=== PATIENT | male | born 2000 | race Caucasian/White ===

== ENCOUNTER 2020-04-18 10:12 | Inpatient (IN) | payer OTHER ==
[~2020-04-18] VITALS: Ht 188 cm; Wt 79.8 kg
[2020-04-18 11:47] LABS: AMPHETAMINES LEVEL URINE NEGATIVE (NEGATIVE); BARBITURATES URINE NEGATIVE (NEGATIVE); BENZODIAZEPINES URINE NEGATIVE (NEGATIVE); CANNABINOIDS URINE NEGATIVE (NEGATIVE); COCAINE METABOLITE URINE NEGATIVE (NEGATIVE); METHADONE URINE NEGATIVE (NEGATIVE); OPIATES URINE NEGATIVE (NEGATIVE); PHENCYCLIDINE URINE NEGATIVE (NEGATIVE)
[2020-04-18 12:01] LABS: HEMATOCRIT 42.4 % (42.0-52.0); MEAN CORPUSCULAR HEMOGLOBIN 28.6 pg (27.0-33.0); MEAN CORPUSCULAR VOLUME 86.7 fl (80.0-96.0); PLATELET COUNT, AUTOMATED 257 10^3/uL (150-450); RED BLOOD COUNT 4.89 10^6/uL (4.30-6.10); WHITE BLOOD COUNT 5.9 10^3/uL (4.0-10.0)
[2020-04-18 12:04] LABS: ACETAMINOPHEN LEVEL < 2.0 UG/ML (10.0-30.0); ALBUMIN 3.8 GM/DL (3.2-5.2); ALT/SGPT 46 U/L (12-78); BILIRUBIN,DIRECT 0.2 MG/DL (0.0-0.2); BILIRUBIN,TOTAL 1.1 MG/DL (0.2-1.0); BLOOD UREA NITROGEN 16 MG/DL (7-18); CALCIUM LEVEL 9.4 MG/DL (8.5-10.1); CARBON DIOXIDE LEVEL 28 MEQ/L (21-32); CHLORIDE LEVEL 104 MEQ/L (98-107); CREATININE FOR GFR 0.87 MG/DL (0.70-1.30); ETHYL ALCOHOL (ETHANOL) < 0.003 % (0.000-0.010); GLUCOSE, FASTING 95 MG/DL (70-100); SALICYLATE LEVEL < 1.7 MG/DL (5.0-30.0); SODIUM LEVEL 137 MEQ/L (136-145); THYROID STIMULATING HORMONE < 0.005 uIU/ML (0.463-3.98); TOTAL PROTEIN 6.9 GM/DL (6.4-8.2)
[2020-04-18 13:48] LABS: RSV AMPLIFICATION NEGATIVE (NEGATIVE)
[2020-04-18] MEDS ORDERED: MOM 30ML SUSPENSION UDC PO PRN (14:00)
[2020-04-18] MEDS ORDERED: ACETAMINOPHEN TAB 650MG DOSE (2X325MG) PO PRN (14:00)
[2020-04-18] MEDS ORDERED: MAALOX 30 ML SUSP *UDC PO PRN (14:00)
[2020-04-18 15:53] VITALS: BP 122/59
[2020-04-19 06:32] VITALS: BP 109/52
[2020-04-19 14:15] LABS: FREE T4 1.82 NG/DL (0.78-1.33); THYROID STIMULATING HORMONE < 0.005 uIU/ML (0.463-3.98)
--- NOTE | 2020-04-19 14:26 | MHHPEPDOC ---
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 He reports that he was "feeling overwhelmed and that I feel like I bit more than I can handle. I was sad about a lot of things and about a lot of thing built up over the years. " Report feeling feeling overwhelmed starting a week or 2 ago with an incident with his in which she had lacerated her arm. PER ED REPORT: Pt was taken to [facility] this morning by his Sgt after she noticed a decline in Pts mood. [facility] assessed Pt and deemed that he could not CFS: Pt voluntarily came to ED for MHE. Pt reports having a lot of "overwhelming feelings." Pt is very guarded and flat with short responses to questions. Pt reports that he doesn't "feel anything," pt reports that even playing with his one year old daughter does not bring him nuno. Pt reports that he has had SI for quite some time but that it has gotten worse after an incident with his that happened roughly two weeks ago. Pt refuses to disclose plan or the incident with his to TW. Pt reports that he had trouble processing the incident and that is when the thoughts of ending his life became worse. Pt reports that he has thought about ending his life a lot but as of now has not acted. Pt reports that if he were to be left alone for any length of time that he would act out on his plan to end his life. Pt reports that he does not have a history of depression but reports a family history of depression and bipolar. Pt denies HI/Self Injury/AH/VH but admits to SI. Pt is unable to CFS. Psychiatric Review of Systems Depression (2 or more weeks): depressed mood, anhedonia, insomnia/hypersomnia (a little of bit), feelings of excess/guilt (hopelessness), difficulty concentrating, appetite changes (varies), psychomotor changes (tired), suicidal thoughts (a few times) Ale (4 or more days of): irritable/elevated mood, decreased need for sleep (at times) Psychosis: denies PTSD: denies Anxiety: situational anxiety, stressor related anxiety Anxiety/ 6 months or more of: restlessness, keyed up, easily fatigued Past Psychiatric History Previous Psychiatric Diagnosis: None Previous Psychiatric Admissions: [facility] is first Suicide Attempts: Suicidal ideations - last thoughts less than a week ago Psychiatric Follow-up: [facility] Psychiatric medications: None Past Medical History Medical Problems No contributory issues No Surgeries Allergic to PCNs Head Injury: No Seizures: No Hospitalizations: No Surgeries: No Family Medical/Psychiatric HX Medical Problems Mother - Bipolar Maternal side - mental illnesses Psychiatric Disorders: Yes Addiction: Yes (Mother - drug addiction Mother's father - ETOH) Suicide Attemps/Completions: Yes (Maternal Uncle committed suicide) Addiction History denies Social History [place] and lived in [place] for one year in High School, lived with Mother. Dad was a soldier, parents when he was younger. Has two younger brothers and 2 younger sisters. Was the emptional Support for his mother Abuse/Trauma: Denies [place] Education: [place] School Graduate Employment: Active [employer] Social Support: and mother Legal: None Marital: , less than one year. 1 year old daughter Mental Status Examination General Appearance: well groomed, appears stated age, hospital scubs/clothing Build: average Demeanor: withdrawn, guarded Eye Contact: avoidant Activity: slowed Behavior: loss of interests, anhedonia, withdrawn Speech: low in volume, impoverished Mood: depressed, anxious Affect: flat Thought Process: logical/linear, depressed Thought Content (Other): none reported Thought Content (Aggressive): none reported Perception (Hallucinations): none reported Perception (Other): none reported Cognition (Impairment of): none reported Cognition(Intelligence Est.): average Oriented: Awake, Alert, Oriented times three Insight: poor Judgment: Poor Psychosis: Denies Diagnoses Major Depressive Disorder, Single Episode, Moderate A-FIB/CHADSVASC A-FIB History Current/History of A-Fib/PAF?: No Current PO Anticoag Therapy: No Assessment 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 He reports other stressors but won't disclose them. He reports feeling suicidal since his had lacerated her arm. States that he had trouble processing the incident and that is when the thoughts of ending his life became worse. He reports poor sleep, depressed/sad mood, anhedonia, feelings of hopelessness, poor concentration and strong suicidal thoughts without a plan. Patient is alert and oriented, guarded and withdrawn, he has poor eye contact, his speech is low, slow and impoverished, He appears quite depressed with flat affect. Will start patient on Zoloft and titrate to therapeutic levels Initial Treatment Plan 1. Patient was admitted on a [9.39] status. 2. Complete history was obtained. 3. With patients permission, family will be contacted and database will be expanded. 4. Patients medication regimen will be reviewed and changed accordingly. 5. Patient will be provided with protected environment. 6. Patient will be treated with individual, group, and milieu therapies. 7. Patient will receive supportive psych-education. 8. Discharge planning will commence immediately. 9. Outpatient follow-up treatment will be strongly recommended. 10. The initial treatment plan will focus initially on: * Depression. * Risk for suicide. ESTIMATED LENGTH OF STAY: 3-5 DAYS. TIME SPENT COUNSELING AND COORDINATING INITIAL CARE: 60 minutes. N/A-No Antipsychotics Vital Signs Vital Signs Date Time Temp Pulse Resp B/P (MAP) Pulse Ox O2 Delivery O2 Flow Rate FiO2 04/19/20 06:32 97.5 71 16 109/52 (71) 100 Room Air Laboratory Data 24H Labs Laboratory Tests 2 04/18/20 12:59: Coronavirus (COVID-19)(PCR) NEGATIVE, Influenza Type A (RT-PCR) NEGATIVE, Influenza Type B (RT-PCR) NEGATIVE, Respiratory Syncytial Virus (PCR) NEGATIVE Medications No Active Prescriptions or Reported Meds Allergies Coded Allergies: Penicillins (Verified Allergy, Unknown, 04/18/20) can't remember CASEY GRIJALVA NP Apr 19, 2020 13:26
[2020-04-19] MEDS ORDERED: SERTRALINE HCL 25 MG TABLET PO ONE (14:30)
--- NOTE | 2020-04-19 14:56 | HPEPDOC ---
[facility] Medical History & Physical Date of Admission Apr 19, 2020 Date of Service: Apr 19, 2020 History and Physical Chief complaint: Who presented to the emergency room with suicidal ideation History of present illness: Patient is a 19-year-old male with no significant past medical history who is presented to [facility] by police after reporting suicidal ideation. Patient has been admitted to the inpatient mental health unit under the care of psychiatry. Hospitalist service was consulted for medical screening evaluation. Patient denies any headache, nausea, vomiting, chest pain, shortness breath, palpitations, abdominal pain, constipation, diarrhea, or urinary discomfort. Patient denies any recent fevers or chills. Patient denies use of any [id number] medications or supplements for weight loss / working out. Patient denies any drug use. Denies any family history of thyroid problems. Denies any skin or hair changes. Patient reports his appetite is fairly normal and denies any changes in his weight. Past Medical History: No significant past medical history Past Surgical History: No significant past surgical history Allergies: See below Medications: See below Family History: - Mother with a history of mental issues - No history of malignancies Social History: - Denies the use of alcohol, tobacco or illicit drugs - Denies recent travel or sick contacts - Lives with and child Review of Systems: 10 point review of systems complete, all negative otherwise stated in HPI Physical exam: - Vitals: BP [122/59], HR [81], RR [17], Sat [100%RA], Temp [97.5F] - General: Sitting up in bed, Speaking in full sentences, AAOx3 - HEENT: NC, AT, PERRLA - CVS: RRR, +S1S2 - Lungs: Fair air entry bilaterally, No appreciable wheezing / rales / rhonchi - Abdomen: Soft, Non-distended, Non-tender - Extremities: No lower extremity edema, No calf tenderness - Neuro: No focal motor or sensory deficit - Skin: No visible rashes Labs: See below Imaging: See below EKG: See below Assessment and Plan: Suicidal ideation - Admitted to the inpatient mental health unit under the care of psychiatry - Currently being managed by psychiatry Suppressed TSH - Currently is asymptomatic; no hyperthyroid symptoms noted - No exophthalmos - Hemodynamically stable; not tachycardic - Will repeat lab work - Will evaluate with TSH / Free T4 / Total T3 / Thyroid stimulating immunoglobulins / Thyroglobulin (quantitative) - Will check thyroid US - Will likely require radioactive iodine uptake scan - unfortunately cannot be completed inpatient; will need to be pursued as an outpatient - Will consider Methimazole after workup is completed; likely as an outpatient - Patient will require outpatient follow up with PCP and Endocrinology within 7 days DVT prophylaxis - Will c/w early ambulation Thank you for this consultation; Hospitalist service will now sign off; please re-consult as needed Vital Signs Vital Signs Date Time Temp Pulse Resp B/P (MAP) Pulse Ox O2 Delivery O2 Flow Rate FiO2 04/19/20 06:32 97.5 71 16 109/52 (71) 100 Room Air Laboratory Data Labs 24H Laboratory Tests 2 04/19/20 13:23: Thyroid Stimulating Hormone (TSH) < 0.005L, Free Thyroxine 1.82H, Total Triiodothyronine 124.0 Home Medications No Active Prescriptions or Reported Meds Allergies Coded Allergies: Penicillins (Verified Allergy, Unknown, 04/18/20) can't remember CHRISTOPH HARRINGTON MD Apr 19, 2020 14:56
--- NOTE | 2020-04-19 15:46 | REP ---
INDICATION: Hyperthyroidism COMPARISON: None. TECHNIQUE: Nicole scale and color evaluation of the thyroid gland using the linear high frequency transducer. FINDINGS: The thyroid gland is normal in overall parenchymal echotexture, vascularity and contour. The isthmus measures 5 mm in width. Right lobe measures 6.1 x 1.9 x 2.1 cm and includes multiple relatively nonspecific benign appearing cysts measuring up to 5 mm. Left lobe measures 5.8 x 1.5 x 1.5 cm and includes multiple scattered relatively nonspecific benign appearing cysts measuring up to 6 mm. IMPRESSION: Multiple bilateral small benign-appearing thyroid cysts. <Electronically signed by Tevin Boudreaux > 04/19/20 [id number]
[2020-04-19 18:46] VITALS: BP 140/64
[2020-04-19] MEDS: busPIRone 5 MG TAB PO SCH (20:38)
[2020-04-19] MEDS: traZODone 50 MG TAB PO PRN (20:39)
[2020-04-20 06:43] VITALS: BP 121/53
[2020-04-20] MEDS: busPIRone 5 MG TAB PO SCH ×2 (09:14→22:16)
[2020-04-20] MEDS: SERTRALINE HCL 50 MG TAB PO SCH (09:14)
--- NOTE | 2020-04-20 15:50 | MHIPNPDOC ---
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 Pt reports that he has thought about ending his life a lot but as of now has not acted. He reports that he was "feeling overwhelmed and that I feel like I bit more than I can handle. I was sad about a lot of things and about a lot of thing built up over the years. " Report feeling overwhelmed starting a week or 2 ago with an incident with his in which she had lacerated her arm. PER ED REPORT: Pt was taken to [facility] this morning by his Sgt after she noticed a decline in Pts mood. [facility] assessed Pt and deemed that he could not CFS: Pt voluntarily came to ED for MHE. Pt r eports having a lot of "overwhelming feelings." Pt is very guarded and flat with short responses to questions. Pt reports that he doesn't "feel anything," pt reports that even playing with his one year old daughter does not bring him nuno. Pt reports that he has had SI for quite some time but that it has gotten worse after an incident with his that happened roughly two weeks ago. Pt refuses to disclose plan or the incident with his to TW. Pt reports that he had trouble processing the incident and that is when the thoughts of ending his life became worse. Pt reports that he has thought about ending his life a lot but as of now has not acted. Pt reports that if he were to be left alone for any length of time that he would act out on his plan to end his life. Pt reports that he does not have a history of depression but reports a family history of depression and bipolar. Pt denies HI/Self Injury/AH/VH but admits to SI. Pt is unable to CFS. VITAL SIGNS: See below. CURRENT MEDICATIONS: See below. 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 , Active Duty, , male, who reports th at he was brought into the ED after he was observed to be depressed and suicidal with no plan General Appearance: well groomed, appears stated age, hospital scubs/clothing Build: average Demeanor: withdrawn, guarded Eye Contact: avoidant Activity: slowed Behavior: loss of interests, anhedonia, withdrawn Speech: low in volume, impoverished Mood: depressed, anxious Affect: flat Thought Process: logical/linear Thought Content (Other): depressed, suicidal thoughts that have lessened Thought Content (Aggressive): none reported Perception (Hallucinations): none reported Perception (Other): none reported Cognition (Impairment of): none reported Cognition(Intelligence Est.): average Oriented: Awake, Alert, Oriented times three Insight: fair Judgment: fair Psychosis: Denies DIAGNOSES: Major Depressive Disorder, Single Episode, Moderate ASSESSMENT: Started Zoloft and Hydroxyzine for anxiety, patient is withdrawn and isolative. States that he feels that he needed this hospitalization, to "reset." States that he feel good knowing that his family is doing ok on the outside. Feels very responsible for everyone. He was the "glue" that kept his family intact growing up as his mother dealt with her addiction problems. He stated that in high school when he was not in school, his friend noted that it wasn't the same without him. Patient appears depressed, but reports that he is feeling "slightly better." MANAGEMENT PLAN: Continue medications as prescribed, will consider TIME SPENT: 25 minutes. Vital Signs Vital Signs Date Time Temp Pulse Resp B/P (MAP) Pulse Ox O2 Delivery O2 Flow Rate FiO2 04/20/20 06:43 98.6 71 18 121/53 (75) 96 Room Air Current Medications Current Medications Medications (Trade) Dose Ordered Sig/Vj Route PRN Reason Start Time Stop Time Status Last Admin Dose Admin Acetaminophen (Tylenol Tab) 650 mg Q6HP PRN PO HEADACHE or DISCOMFORT 04/18/20 14:00 Al Hydrox/Mg Hydrox/Simethicone (Mylanta) 30 ml Q4HP PRN PO HEARTBURN/INDIGESTION 04/18/20 14:00 Buspirone HCl (Buspar) 5 mg BID PO 04/19/20 21:00 04/20/20 09:14 Home Med (Med Rec Complete!) ASDIRECTED XX 04/18/20 12:40 04/18/20 12:40 DC Magnesium Hydroxide (Milk Of Magnesia) 30 ml DAILYPRN PRN PO CONSTIPATION 04/18/20 14:00 Sertraline HCl (Zoloft) 50 mg DAILY PO 04/20/20 09:00 04/20/20 09:14 Trazodone HCl (Desyrel) 50 mg QHSP PRN PO INSOMNIA 04/18/20 14:00 04/19/20 20:39 Allergies Coded Allergies: Penicillins (Verified Allergy, Unknown, 04/18/20) can't remember CASEY GRIJALVA NP Apr 20, 2020 15:50
[2020-04-21 07:32] VITALS: BP 135/75
[2020-04-21] MEDS: busPIRone 5 MG TAB PO SCH ×2 (09:51→21:39)
[2020-04-21] MEDS: SERTRALINE HCL 50 MG TAB PO SCH (09:51)
--- NOTE | 2020-04-21 14:35 | MHIPNPDOC ---
[facility] Progress Note Progress Note DATE OF SERVICE: 04/21/20 HISTORY Patient discusses the sadness of his life, the responibility of taking care of his drug addicted mother. He describes a life of general sadness. He s tated to his sgt. that he wanted to end his life. Recently has cut herself 2 weeks ago. has trouble being alone. VITAL SIGNS: See below. NEW TEST RESULTS: None. CURRENT MEDICATIONS: See below. MENTAL STATUS EXAMINATION: Patient is a. 19-year old male, who is. Downcast with a history of dysthymia. Speech: Is, quiet. Language skills are. No gross disturbance. Thought processes including: Focused on sadness of his life in general. Thought content: As above. Abstract reasoning, and computation: Able to abstract. Description of associations:. No loose association. Description of abnormal or psychotic thoughts:. No psychotic thought. Judgment: Poor. Insight:, Limited. Orientation: 3. Recent and remote memory: No disturbance. Attention span and concentration: No obvious disturbance. Language:. No gross disturbance. Fund of knowledge: Full Mood: Sad. Affect:, Congruent. DIAGNOSES: 1. Dysthymia. 2.. Recurrent major depression. 3., Marital stressors. ASSESSMENT: As above MANAGEMENT PLAN:. Continued observation and medication. TIME SPENT: 35 minutes. Vital Signs Vital Signs Date Time Temp Pulse Resp B/P (MAP) Pulse Ox O2 Delivery O2 Flow Rate FiO2 04/21/20 07:32 98.4 69 20 135/75 (95) 98 Room Air Current Medications Current Medications Medications (Trade) Dose Ordered Sig/Vj Route PRN Reason Start Time Stop Time Status Last Admin Dose Admin Acetaminophen (Tylenol Tab) 650 mg Q6HP PRN PO HEADACHE or DISCOMFORT 04/18/20 14:00 Al Hydrox/Mg Hydrox/Simethicone (Mylanta) 30 ml Q4HP PRN PO HEARTBURN/INDIGESTION 04/18/20 14:00 Buspirone HCl (Buspar) 5 mg BID PO 04/19/20 21:00 04/21/20 09:51 Home Med (Med Rec Complete!) ASDIRECTED XX 04/18/20 12:40 04/18/20 12:40 DC Magnesium Hydroxide (Milk Of Magnesia) 30 ml DAILYPRN PRN PO CONSTIPATION 04/18/20 14:00 Sertraline HCl (Zoloft) 50 mg DAILY PO 04/20/20 09:00 04/21/20 09:51 Trazodone HCl (Desyrel) 50 mg QHSP PRN PO INSOMNIA 04/18/20 14:00 04/19/20 20:39 Allergies Coded Allergies: Penicillins (Verified Allergy, Unknown, 04/18/20) can't remember MCKENNA WHITTINGTON MD Apr 21, 2020 14:35
[2020-04-21 19:06] VITALS: BP 124/60
[2020-04-21] MEDS: traZODone 50 MG TAB PO PRN (21:39)
[2020-04-22 06:00] VITALS: BP 121/58
[2020-04-22] MEDS: busPIRone 5 MG TAB PO SCH ×2 (09:44→21:29)
[2020-04-22] MEDS: SERTRALINE 100 MG TAB PO SCH (09:44)
--- NOTE | 2020-04-22 13:45 | MHIPNPDOC ---
[facility] Progress Note Progress Note DATE OF SERVICE: 04/22/20 HISTORY: 19-year-old male with dysthymia and depression, feelings of being overwhelmed. He states when his uncle "things went downhill." His uncle committed suicide. His uncle had "known everybody in [place]. VITAL SIGNS: See below. NEW TEST RESULTS:, None. CURRENT MEDICATIONS: See below. MENTAL STATUS EXAMINATION: Patient is a 19-year old male, who is, downcast with poor eye contact. Speech: Is, quiet. Language skills are. No gross disturbance. Thought processes including:. Sad content. Thought content: As above. Abstract reasoning, and computation:. Poor abstraction. Description of associations:. No loose associations. Description of abnormal or psychotic thoughts:, Preoccupied with sadness and being overwhelmed and unable to handle others. Judgment: Poor. Insight:, Limited. Orientation: 3. Recent and remote memory: Intact. Attention span and concentration: In tact. Language:. No gross disturbance. Fund of knowledge: Reasonable. Mood: Sad. Affect:, Congruent. DIAGNOSES: 1., Major depression. 2., None. 3. None. ASSESSMENT: As above MANAGEMENT PLAN:. Continue medication and counseling. TIME SPENT: 30 minutes. Vital Signs Vital Signs Date Time Temp Pulse Resp B/P (MAP) Pulse Ox O2 Delivery O2 Flow Rate FiO2 04/22/20 06:00 98.1 81 18 121/58 (79) 100 04/21/20 07:32 Room Air Current Medications Current Medications Medications (Trade) Dose Ordered Sig/Vj Route PRN Reason Start Time Stop Time Status Last Admin Dose Admin Acetaminophen (Tylenol Tab) 650 mg Q6HP PRN PO HEADACHE or DISCOMFORT 04/18/20 14:00 Al Hydrox/Mg Hydrox/Simethicone (Mylanta) 30 ml Q4HP PRN PO HEARTBURN/INDIGESTION 04/18/20 14:00 Buspirone HCl (Buspar) 5 mg BID PO 04/19/20 21:00 04/22/20 09:44 Home Med (Med Rec Complete!) ASDIRECTED XX 04/18/20 12:40 04/18/20 12:40 DC Magnesium Hydroxide (Milk Of Magnesia) 30 ml DAILYPRN PRN PO CONSTIPATION 04/18/20 14:00 Sertraline HCl (Zoloft) 50 mg DAILY PO 04/20/20 09:00 04/21/20 14:23 DC 04/21/20 09:51 Sertraline HCl (Zoloft) 100 mg DAILY PO 04/22/20 09:00 04/22/20 09:44 Trazodone HCl (Desyrel) 50 mg QHSP PRN PO INSOMNIA 04/18/20 14:00 04/21/20 21:39 Allergies Coded Allergies: Penicillins (Verified Allergy, Unknown, 04/18/20) can't remember MCKENNA WHITTINGTON MD Apr 22, 2020 13:45
[2020-04-22 17:59] VITALS: BP 143/66
[2020-04-22] MEDS: traZODone 50 MG TAB PO PRN (21:29)
[2020-04-23 07:00] VITALS: BP 151/71
[2020-04-23] MEDS: busPIRone 5 MG TAB PO SCH (09:33)
[2020-04-23] MEDS: SERTRALINE 100 MG TAB PO SCH (09:33)
[2020-04-23] MEDS ORDERED: BUSP5TA PO (10:29)
[2020-04-23] MEDS ORDERED: TRAZ-252 PO (10:29)
[2020-04-23] MEDS ORDERED: ZOLO100T PO (10:29)
--- NOTE | 2020-04-23 10:52 | MHDSPDOC ---
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 He reports that he was "feeling overwhelmed and that I feel like I bit more than I can handle. I was sad about a lot of things and about a lot of thing built up over the years. " Report feeling feeling overwhelmed starting a week or 2 ago with an incident with his in which she had lacerated her arm. PER ED REPORT: Pt was taken to [facility] this morning by his Sgt after she noticed a decline in Pts mood. [facility] assessed Pt and deemed that he could not CFS: Pt voluntarily came to ED for MHE. Pt reports having a lot of "overwhelming feelings." Pt is very guarded and flat with short responses to questions. Pt reports that he doesn't "feel anything," pt reports that even playing with his one year old daughter does not bring him nuno. Pt reports that he has had SI for quite some time but that it has gotten worse after an incident with his that happened roughly two weeks ago. Pt refuses to disclose plan or the incident with his to TW. Pt reports that he had trouble processing the incident and that is when the thoughts of ending his life became worse. Pt reports that he has thought about ending his life a lot but as of now has not acted. Pt reports that if he were to be left alone for any length of time that he would act out on his plan to end his life. Pt reports that he does not have a history of depression but reports a family history of depression and bipolar. Pt denies HI/Self Injury/AH/VH but admits to SI. Pt is unable to CFS. 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 He was admitted to [facility] on a 9.39 legal status. He discusses the sadness of his life, the responsibility of taking care of his drug addicted mother. He describes a life of general sadness. He stated to his Sgt. that he wanted to end his life. Recently has cut herself 2 weeks ago. has trouble being alone. He reports and is observed with dysthymia. He states when his Uncle "things w ent downhill." His uncle committed suicide. His Uncle had "known everybody in [place]. Started on Zoloft and increased to 100 mg, Buspar 5 mg twice daily and Trazodone 50 mg as needed HS for sleep. It was reported that he was reading much of the weekend, reporting decreased depression and no suicidal ideation since before he was admitted. He is requesting to be discharged today. Treatment team feels that he meets criteria for discharge. He was encouraged to continued his treatment at [place], his mood is mildly sad and affect flat, but he smiled several times in the discharge interview. He reports feeling ready for discharge today and wanting to return home to his family. DISCHARGE ASSESSMENT: In today's interview, patient is alert and oriented, pts dress is appropriate. Hygiene and grooming is well-kempt. Smiles on approach and is pleasant and engaged in the interview. Denies depression and anxiety. Denies suicidal and homicidal ideation, planning or intent. Denies and is not observed with lawrence, psychotic symptoms of delusions, bizarre thinking, obsessions, paranoia, ruminations illogical thoughts, flight of ideas or having poor insight and judgement. Patient has normal mentation, declines further hospitalization on a voluntary status and meets criteria for discharge today. Patient encouraged to return to hospital if his symptoms worsen or change and encouraged to call unit if he/she/they needs to speak to provider for questions regarding medications or care. 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 Speech: Is fluid, conversant, normal rate, tone and volume Language skills are intact Thought processes including: linear and goal oriented Thought content: denies depression and anxiety. Denies suicidal/homicidal ideation, planning or intent. Abstract reasoning, and computation: fair Description of associations: denies, none observed Description of abnormal or psychotic thoughts: denies, none observed. Judgment: fair Insight: fair Orientation: alert and oriented to person, place, time and situation Recent and remote memory: intact Attention span and concentration: good Language: expansive Fund of knowledge: average Mood: Euthymic Mood Affect: reactive MEDICATIONS ON DISCHARGE: See Medication Reconciliation PLAN/FOLLOWUP ARRANGEMENTS: Patient discharged to [facility]. He is following up at [facility] The amount of time spent in the coordination of care for this patient was approximately 25 minutes. ETOH/Disorder Med Rx ETOH/DRUG DISORDER RX: N/A Vital Signs/I&Os Vital Signs Date Time Temp Pulse Resp B/P (MAP) Pulse Ox O2 Delivery O2 Flow Rate FiO2 04/23/20 07:00 97.2 78 18 151/71 (97) 98 Room Air Medications Scheduled Buspirone HCl (Buspirone HCl) 5 Mg Tablet, 5 MG PO BID for Anxiety, #14 Sertraline Hcl (Zoloft) 100 Mg Tablet, 100 MG PO DAILY for Depression, #7 Scheduled PRN Trazodone HCl (Trazodone HCl) 50 Mg Tablet, 50 MG PO QHSP PRN for INSOMNIA, #7 Allergies Coded Allergies: Penicillins (Verified Allergy, Unknown, 04/18/20) can't remember CASEY GRIJALVA NP Apr 23, 2020 10:43
[2020-04-25 15:10] LABS: THRYOGLOBULIN ANTIBODIES (ATA) < 1.0 IU/mL (0.0-0.9); THYROGLOBULIN QUANTITATIVE 31.1 ng/mL (1.4-29.2); THYROID STIMULATING IMMUNOGLOB <0.10 IU/L (0.00-0.55)
== END 2020-04-23 13:00 | disposition home or self-care (01) | DRG 885 ==
LOC: M ED 10:12 → M ED INP 14:00 → M PSY 15:52
PROVIDERS: ADMIT Psychiatry & Neurology Psychiatry; ATTEND Psychiatry & Neurology Child & Adolescent Psychiatry
DX: F32.1 Major depressive disorder, single episode, moderate (principal); R45.851 Suicidal ideations; Z88.0 Allergy status to penicillin